=== PATIENT | male | born 1945 | race Caucasian/White ===

== ENCOUNTER 2019-06-08 08:35 | Emergency (ER) | payer BC ==
[2019-06-08 09:18] LABS: ADD MAN DIFF? NO
[2019-06-08 09:19] LABS: BASOPHILS % 0.4 % (0.0-2.0); EOSINOPHILS # 0.1 10^3/ul (0.0-0.5); EOSINOPHILS % 1.1 % (0.0-7.0); HEMATOCRIT 44.4 % (42.0-52.0); HEMOGLOBIN 14.5 g/dl (14.0-18.0); LYMPHOCYTES # 1.1 10^3/ul (0.8-2.9); LYMPHOCYTES % 14.9 % (15.0-51.0); MEAN CORPUSCULAR HEMOGLOBIN 31.2 pg (29.0-33.0); MEAN CORPUSCULAR HGB CONC 32.7 g/dl (32.0-37.0); MEAN CORPUSCULAR VOLUME 95.5 fl (82.0-101.0); MONOCYTE # 0.7 10^3/ul (0.3-0.9); MONOCYTES % 9.1 % (0.0-11.0); NEUTROPHIL # 5.4 10^3/ul (1.6-7.5); NEUTROPHILS % 74.1 % (39.0-77.0); PLATELET COUNT 240 10^3/UL (140-415); RED BLOOD COUNT 4.65 10^6/ul (4.70-6.10); RED CELL DISTRIBUTION WIDTH 12.8 % (11.5-14.5)
[2019-06-08 09:19] LABS: WHITE BLOOD COUNT 7.3 10^3/ul (4.8-10.8)
[2019-06-08 09:36] LABS: ANION GAP 10 (5-13); BLOOD UREA NITROGEN 19 mg/dl (7-20); CALCIUM 9.7 mg/dl (8.4-10.2); CARBON DIOXIDE 32 mmol/L (21-31); CHLORIDE 102 mmol/L (97-110); CREATININE 1.36 mg/dl (0.61-1.24); GLUCOSE 102 mg/dl (70-220); POTASSIUM 3.9 mmol/L (3.5-5.1); SODIUM 144 mmol/L (135-144)
[2019-06-08 09:40] LABS: INR 1.57; PARTIAL THROMBOPLASTIN TIME 32.1 Sec (23.0-35.0); PROTIME 18.9 Sec (11.9-14.9); PT RATIO 1.5
[2019-06-08 09:48] LABS: ADD UMIC YES; UR ASCORBIC ACID NEGATIVE (NEGATIVE); UR BILIRUBIN (Dip) NEGATIVE (NEGATIVE); UR BLOOD (Dip) 3+ mg/dL (NEGATIVE); UR CLARITY CLEAR (CLEAR); UR COLOR YELLOW (YELLOW); UR GLUCOSE (Dip) NEGATIVE (NEGATIVE); UR KETONES (Dip) NEGATIVE (NEGATIVE); UR LEUKOCYTE ESTERASE (Dip) NEGATIVE Leu/ul (NEGATIVE); UR MUCUS FEW /HPF (NONE SEEN); UR NITRITE (Dip) NEGATIVE (NEGATIVE); UR RBC 33 /HPF (0-5); UR SPECIFIC GRAVITY (Dip) 1.012 (1.003-1.030); UR TOTAL PROTEIN (Dip) NEGATIVE (NEGATIVE); UR UROBILINOGEN (Dip) NEGATIVE (NEGATIVE); UR WBC 7 /HPF (0-5)
== END 2019-06-08 10:27 | disposition home or self-care (01) ==
LOC: E/R 08:35
DX: R31.9 Hematuria, unspecified (principal); T45.7X5A Adverse effect of anticoagulant antagonists, vitamin K and other coagulants, initial encounter
CPT/HCPCS: 36415; 80048; 81001; 85025; 85610; 85730; 87086; 99283-25